=== PATIENT | female | born 2000 | race Caucasian/White ===

== ENCOUNTER 2024-09-25 23:20 | Emergency (ER) | payer BC ==
[2024-09-26] MEDS ORDERED: Ketorolac Tromethamine 30 MG (1 mL) VIAL ONE (00:18)
[2024-09-26] MEDS ORDERED: Prochlorperazine 10 MG/2 ML VIAL ONE (00:18)
[2024-09-26] MEDS ORDERED: diphenhydrAMINE 50 MG/ML VIAL ONE (00:18)
[2024-09-26] MEDS ORDERED: diphenhydrAMINE 25 MG CAP ONE (02:10)
[2024-09-26] MEDS ORDERED: Prochlorperazine Maleate 5 MG TAB ONE (02:10)
[2024-09-26] MEDS ORDERED: Ibuprofen 200 MG TAB ONE (02:11)
== END 2024-09-26 03:50 | disposition home or self-care (01) ==
LOC: CSHERS 23:20
DX: G43.909 Migraine, unspecified, not intractable, without status migrainosus (principal); J02.9 Acute pharyngitis, unspecified; B97.89 Other viral agents as the cause of diseases classified elsewhere; F17.210 Nicotine dependence, cigarettes, uncomplicated
CPT/HCPCS: 87081; 87428; 87430; 99284; J0780; J1200; J1885; Q0164